=== PATIENT | female | born 1995 ===

== ENCOUNTER 2019-08-09 20:30 | Outpatient (CLI) | payer OTHER | END 2019-08-09 20:31 | disposition home or self-care (01) | LOC: SLEEPLAB 20:30 | PROVIDERS: ATTEND Internal Medicine | DX: G47.10 Hypersomnia, unspecified (principal); G47.61 Periodic limb movement disorder; R51 Headache; R53.83 Other fatigue | CPT/HCPCS: 95810 ==

== ENCOUNTER 2019-08-10 05:00 | Outpatient (CLI) | payer OTHER | END 2019-08-10 05:01 | disposition home or self-care (01) | LOC: SLEEPLAB 05:00 | PROVIDERS: ATTEND Internal Medicine | DX: G47.10 Hypersomnia, unspecified (principal); G47.61 Periodic limb movement disorder; R53.83 Other fatigue; R51 Headache | CPT/HCPCS: 95805 ==